=== PATIENT | male | born 2000 | race Two or more races ===

== ENCOUNTER 2021-04-06 08:36 | Emergency (ER) | payer SELFPAY ==
[2021-04-06] MEDS ORDERED: CEPHALEXIN500 M1 PO (10:02)
== END 2021-04-06 10:55 | disposition home or self-care (01) ==
LOC: ER1 08:36
DX: S62.650B Nondisplaced fracture of middle phalanx of right index finger, initial encounter for open fracture (principal); W20.8XXA Other cause of strike by thrown, projected or falling object, initial encounter; Y92.89 Other specified places as the place of occurrence of the external cause; Y99.0 Civilian activity done for income or pay
CPT/HCPCS: 12002; 73130; 90471; 90715; 96372; 99283; J0690; J1885